=== PATIENT | male | born 1990 | race Caucasian/White ===

== ENCOUNTER 2019-09-30 00:33 | Emergency (ER) | payer MEDICAID ==
[~2019-09-30] VITALS: Ht 175.3 cm; Wt 109.1 kg
[2019-09-30] MEDS ORDERED: LIDOcaine 1% 30ml preserv. free vial IJ ONE (02:00)
[2019-09-30] MEDS ORDERED: TETanus/Pertussis (Acell)/Diphther VAC/PF (Tdap-Adult) 0.5ml syringe IMVAC ONE (02:00)
[2019-09-30 02:27] VITALS: BP 157/86
[2019-09-30] MEDS ORDERED: CEPH500C5 PO (02:58)
[2019-09-30] MEDS ORDERED: gentamicin 0.1% topical ointment 15gm TP SCH (03:00)
--- NOTE | 2019-10-03 09:46 | NUR ---
PT CALLED, MESSAGE LEFT ON VOICE MAIL TO RETURN CALL REGARDING HIS VISIT ON 09/30/19
--- NOTE | 2019-10-04 11:08 | NUR ---
CALL MADE TO PT REGARDING VISIT/LABS ON 09/30/19. SPOKE TO A CORINA WHO CONFIRMED THAT PT RECEIVED EARLIER MSG. REQUESTED THAT HE HAVE THE PT CALL BACK REGARDING LABS.
== END 2019-09-30 03:27 | disposition home or self-care (01) ==
LOC: ER 00:34
DX: S60.422A Blister (nonthermal) of right middle finger, initial encounter (principal); L98.8 Other specified disorders of the skin and subcutaneous tissue; F17.200 Nicotine dependence, unspecified, uncomplicated; F12.90 Cannabis use, unspecified, uncomplicated; Z72.89 Other problems related to lifestyle; Z88.2 Allergy status to sulfonamides; Z79.899 Other long term (current) drug therapy; W22.8XXA Striking against or struck by other objects, initial encounter; Y93.89 Activity, other specified; Y92.89 Other specified places as the place of occurrence of the external cause; Y99.8 Other external cause status
CPT/HCPCS: 73140; 87070; 87077; 87186; 90471; 90715; 97597; 99284; 99285

== ENCOUNTER 2022-10-29 04:27 | Emergency (ER) | payer MEDICAID ==
[~2022-10-29] VITALS: Ht 177.8 cm; Wt 79.5 kg
[2022-10-29] MEDS ORDERED: CEPH-585 PO (07:28)
[2022-10-29] MEDS ORDERED: DOXY-1 PO (07:28)
[2022-10-29 07:38] VITALS: BP 103/70
== END 2022-10-29 07:41 | disposition home or self-care (01) ==
LOC: ER 04:28
DX: L03.113 Cellulitis of right upper limb (principal); F12.90 Cannabis use, unspecified, uncomplicated; Z88.2 Allergy status to sulfonamides
CPT/HCPCS: 99283; A6258; A6449

== ENCOUNTER 2023-04-07 17:46 | Emergency (ER) | payer MEDICAID ==
[~2023-04-07] VITALS: Ht 177.8 cm; Wt 59.1 kg
[~2023-04-07 17:46] MED LIST: CEPH-585 PO
[2023-04-07] MEDS ORDERED: normal saline 1000ML IV soln IVB ONE (18:05)
[2023-04-07] MEDS ORDERED: ondansetron/PF 4mg/2ml inj IV ONE (18:05)
[2023-04-07 21:55] VITALS: BP 106/57; PULSE 100; RESP 16; TEMP 98; O2SAT 98
== END 2023-04-07 21:57 | disposition home or self-care (01) ==
LOC: ER 17:46
DX: T40.601A Poisoning by unspecified narcotics, accidental (unintentional), initial encounter (principal); R11.0 Nausea; Y92.89 Other specified places as the place of occurrence of the external cause
CPT/HCPCS: 96361; 96374; 99285; J2405; J7030

== ENCOUNTER 2023-10-24 11:22 | Emergency (ER) | payer MEDICAID ==
[~2023-10-24] VITALS: Ht 175.3 cm; Wt 124.3 kg
[2023-10-24 11:28] VITALS: BP 137/96; PULSE 80; O2SAT 94
[2023-10-24] MEDS: LIDOcaine 5% patch TP STA (13:24)
[2023-10-24 13:26] VITALS: RESP 17; TEMP 97.9
== END 2023-10-24 13:28 | disposition home or self-care (01) ==
LOC: ER 11:23
DX: M25.572 Pain in left ankle and joints of left foot (principal); M25.562 Pain in left knee; F12.90 Cannabis use, unspecified, uncomplicated; F15.90 Other stimulant use, unspecified, uncomplicated; Z88.2 Allergy status to sulfonamides; Z79.2 Long term (current) use of antibiotics
CPT/HCPCS: 73564; 73610; 99284